=== PATIENT | female | born 1995 | race Asian ===

== ENCOUNTER 2020-12-06 20:39 | Inpatient (IN) ==
[2020-12-06] MEDS ORDERED: oxyCODONE/Acetamin 5/325 mg TAB PO ONE (21:46)
[2020-12-06] MEDS ORDERED: oxyCODONE/Acetamin 5/325 mg TAB PO PRN (22:23)
[2020-12-06] MEDS ORDERED: Ondansetron 4 mg VIAL 2 MG/ML 2 ml VIAL IV PRN (22:23)
[2020-12-06] MEDS ORDERED: diPHENhydraMINE IV 50 MG/ML 1 ml VIAL (BENADRYL) IV PRN (22:23)
[2020-12-06 23:09] LABS: ABS Basophils 0.1 10^3/ul (0-0.2); ABS Eosinophils 0.1 10^3/ul (0-0.6); ABS Lymphocytes 0.7 10^3/ul (1.0-4.8); ABS Monocytes 0.5 10^3/ul (0-0.8); ABS Neutrophils 8.6 10^3/ul (1.5-7.7); Eosinophil % 0.9 %; Hematocrit 37 % (35-47); Hemoglobin 12.6 g/dL (12.0-16.0); Lymphocyte % 7.2 %; Mean Corpuscular HGB Conc 34 g/dL (31-36); Mean Corpuscular Hemoglobin 30 pg (27-31); Mean Corpuscular Volume 88 fL (80-97); Mean Platelet Volume 8.7 fL (7.4-10.4); Platelet Count 220 10^3/uL (150-450); Red Blood Count 4.24 10^6 /uL (3.70-4.87); Red Cell Distribution Width 13 % (10-15); White Blood Count 9.9 10^3/uL (3.5-10.8)
[2020-12-06 23:17] LABS: Activated Partial Thrombo Time 29.6 seconds (26.0-38.0); INR 1.07 (0.82-1.09)
[2020-12-06 23:28] LABS: ALT 9 U/L (7-52); Albumin 4.4 g/dL (3.2-5.2); Albumin/Globulin Ratio 1.6 (1-3); Alkaline Phosphatase 41 U/L (35-149); Blood Urea Nitrogen 14 mg/dL (6-24); CO2 Carbon Dioxide 26 mmol/L (22-32); Calcium 8.9 mg/dL (8.6-10.3); Chloride 105 mmol/L (101-111); EGFR African American 117.6 (>60); EGFR Non-African American 97.2 (>60); Globulin 2.8 g/dL (2-4); Glucose 126 mg/dL (70-100); Sodium 137 mmol/L (135-145); Total Protein 7.2 g/dL (6.4-8.9)
[2020-12-07 00:14] LABS: Anion Gap 6 mmol/L (2-11)
[2020-12-07] MEDS: NS 0.9% 1000 ml BAG 1,000 ML IV SCH ×2 (00:37→14:04)
[2020-12-07 00:48] LABS: Potassium Redraw 4.2 mmol/L (3.5-5.0)
[2020-12-07] MEDS: Morphine 2 MG/ML SYRINGE IV PRN ×2 (03:13→14:04)
[2020-12-07] MEDS ORDERED: ceFAZolin 2 GM PREMIX 2 GM/50 ML BAG ONE (15:59)
[2020-12-07] MEDS ORDERED: Lidocaine 1% w EPI 1:200,000 SDV 30 ML VIAL ONE (16:10)
[2020-12-07] MEDS ORDERED: Phenylephrine IV 10 MG/ML 1 ml VIAL ONE (16:49)
[2020-12-07] MEDS ORDERED: Midazolam 2 mg/2 ml VIAL 1 mg/ml 2 ml VIAL (2 mg) ONE (16:49)
[2020-12-07] MEDS ORDERED: Lidocaine 2% PF 5 ML VIAL ONE (18:25)
[2020-12-07] MEDS ORDERED: fentaNYL 100 mcg/2 ml 50 MCG/ML VIAL ONE ×2 (18:25→21:09)
[2020-12-07] MEDS ORDERED: Dexamethasone IV 4 MG/ML VIAL 1 ml VIAL ONE (19:05)
[2020-12-07] MEDS ORDERED: Heparin 5000 UNITS/ML 1 mL VIAL SUBCUT SCH (21:00)
[2020-12-07] MEDS ORDERED: Ondansetron 4 mg VIAL 2 MG/ML 2 ml VIAL ONE (21:10)
[2020-12-07] MEDS ORDERED: fentaNYL 100 mcg/2 ml 50 MCG/ML VIAL IV PRN (21:15)
[2020-12-07] MEDS ORDERED: Naloxone 0.4 mg VIAL 0.4 mg/ml 1 ml VIAL IV PRN (21:15)
[2020-12-07] MEDS ORDERED: DiMENhydriNATE IV 50 mg/ml 1 ml VIAL IV PUSH PRN (21:15)
[2020-12-07] MEDS ORDERED: Ondansetron 4 mg VIAL 2 MG/ML 2 ml VIAL IV PRN (21:15)
[2020-12-07] MEDS ORDERED: Bupivacaine 0.25% EPI 200,000 30 ML SDV ONE (21:17)
[2020-12-08 15:25] VITALS: BP 102/56
== END 2020-12-08 15:50 | disposition home or self-care (01) | DRG 494 ==
LOC: ED 20:39 → SSU 23:18
PROVIDERS: ADMIT Orthopaedic Surgery Sports Medicine; ATTEND Orthopaedic Surgery Sports Medicine